=== PATIENT | female | born 1945 | race Two or more races ===

== ENCOUNTER 2020-06-04 12:47 | Outpatient (CLI) | payer MEDICAID ==
[~2020-06-04] VITALS: Ht 149.9 cm; Wt 69.4 kg
--- NOTE | 2020-06-04 15:00 | Consultation ---
DATE OF CONSULTATION: 06/04/2020 CONSULTING PHYSICIAN: Ty Santiago MD. CHIEF COMPLAINT: Abdominal pain. HISTORY OF PRESENT ILLNESS: The patient is a 74-year-old female with history of multiple episodes of diverticulitis, left-sided abdominal pain. According to the family and daughter of at the bedside that the patient has been having recurrent pain, but not as bad as before. When she moves her bowels, she feels better. States she has some constipation, stool is hard. Also complained of GERD, not responding to PPI. According to the patient, apparently had a colonoscopy about three years ago. I do not have the results of it. PAST MEDICAL HISTORY: 1. Hiatal hernia. 2. Diverticulosis. 3. Gastritis. 4. Constipation. PAST SURGICAL HISTORY: x4. MEDICATIONS: Omeprazole. FAMILY HISTORY: No history of GI malignancies. SOCIAL HISTORY: The patient denies any tobacco, alcohol, or drug abuse. ALLERGIES: No known allergies. REVIEW OF SYSTEMS: As dictated in HPI. PHYSICAL EXAMINATION: VITAL SIGNS: Temperature 98, blood pressure 113/58, pulse 74, respirations 20. HEENT: Normocephalic and atraumatic. Sclerae are anicteric. NECK: Supple. No evidence of obvious adenopathy. CARDIOVASCULAR: Regular rate and rhythm. Plus S1-S2. LUNGS: Clear to auscultation bilaterally. ABDOMEN: Soft. There is minimal tenderness to palpation in periumbilical and left lower quadrant. No rebound. No guarding. No peritoneal sign. EXTREMITIES: No cyanosis, no clubbing, no edema. ASSESSMENT AND PLAN: A 74-year-old female with prior history of diverticulitis, but now is complicated with constipation and hard stool. Plan to treat with Cipro, because the patient has also complained of some urinary tract infection symptoms. We are going to give the patient Cipro for 7 days. We are going to change the omeprazole to Protonix the patient response to Protonix better than omeprazole. We will start the patient on Colace and MiraLAX. The patient to come back in the office in 4 weeks for followup. Ty Santiago M.D. DR: PARMJIT JOB#: [id number] CC:
[2020-06-11] MEDS ORDERED: OMEPRAZOLE40 M1 ORAL (07:11)
== END 2020-06-04 14:47 | disposition home or self-care (01) ==
LOC: PAN 12:47
DX: R10.9 Unspecified abdominal pain (principal); Z79.899 Other long term (current) drug therapy; K57.90 Diverticulosis of intestine, part unspecified, without perforation or abscess without bleeding; K59.00 Constipation, unspecified; K21.9 Gastro-esophageal reflux disease without esophagitis
CPT/HCPCS: G0463